=== PATIENT | male | born 1995 ===

== ENCOUNTER 2024-02-11 07:39 | Outpatient (CLI) | payer OTHER ==
--- NOTE | 2024-02-11 13:08 | MRI Report ---
PROCEDURE: Lumbar Spine WO INDICATIONS: LUMBAR RADICULOPATHY TECHNIQUE: Noncontrast sagittal T1 spin echo and T2 fast echo, sagittal STIR, axial T1 and T2 fast spin echo thr ough the lumbar spine. In cases with scoliosis, additional coronal T2 fast spin echo may be performe d. COMPARISON: None. FINDINGS: Image quality: Excellent. Alignment and Curvature: Straightening of the normal lumbar lordosis.. Bone Marrow: Marrow is of normal overall signal. No acute vertebral body compression fractures. Spinal Cord: Conus medullaris terminates at the L1 level. Visualized cord demonstrates normal signa l and size. Paraspinous Soft Tissues: No paravertebral masses. T12-L1: Normal in appearance. L1-L2: Normal in appearance. L2-L3: Normal in appearance. L3-L4: Mild disc desiccation. Diffuse disc bulge. Superimposed left foraminal disc protrusion with associated annular tear. No significant central canal stenosis. Mild left neuroforaminal stenosis. No right neuroforaminal stenosis. L4-L5: Disc desiccation and mild diffuse disc bulge. Superimposed left subarticular disc extrusion extending mildly inferior. This results in narrowing of the left lateral recess and abutment versus i mpingement of the descending left L5 nerve root. No significant central canal or neuroforaminal steno sis. L5-S1: Disc desiccation and mild height loss. Right foraminal disc protrusion resulting in moderate right neuroforaminal stenosis. No central canal stenosis or left neuroforaminal stenosis. IMPRESSION: 1.Degenerative disc disease of the lower lumbar spine as described above. 2.Left subarticular disc extrusion at L4-5 resulting in narrowing of left lateral recess and possible impingement of the descending left L5 nerve root. 3.Right foraminal disc protrusion at L5-S1 resulting in moderate right neuroforaminal stenosis. Reviewed by: Abebe Jacobo MD on 02/11/2024 1:07 PM PDT Approved by: Abebe Jacobo MD on 02/11/2024 1:07 PM PDT Station ID: [id number]
== END 2024-02-11 07:40 | disposition home or self-care (01) ==
LOC: DI 07:39
PROVIDERS: ATTEND Student in an Organized Health Care Education/Training Program
DX: M51.16 Intervertebral disc disorders with radiculopathy, lumbar region (principal); M48.061 Spinal stenosis, lumbar region without neurogenic claudication; M51.27 Other intervertebral disc displacement, lumbosacral region

== ENCOUNTER 2024-06-11 14:24 | Emergency (ER) | payer OTHER ==
[2024-06-11 14:42] VITALS: BP 136/76; O2SAT 99
--- NOTE | 2024-06-11 14:53 | ED Physician Documentation ---
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 He also has a cough. No production to the cough. Minimal sore throat. No COVID testing prior to arrival. PD PAST MEDICAL HISTORY - Past Medical History Past Medical History: No - Past Surgical History Past Surgical History: No - Present Medications Home Medications: Ambulatory Orders Medication Instructions Recorded Confirmed predniSONE [Deltasone] 60 mg PO DAILY 5 Days #15 tablet 06/11/24 - Allergies Allergies/Adverse Reactions: Allergies Allergy/AdvReac Type Severity Reaction Status Date / Time No Known Drug Allergies Allergy Verified 06/11/24 14:37 - Social History Does the pt smoke?: No Smoking Status: Never smoker - Immunizations Immunizations are current?: Yes PD ED PE NORMAL - Vitals Vital signs reviewed: Yes - General General: Alert and oriented X 3, No acute distress - HEENT HEENT: PERRL, EOMI, Other (Mildly red tonsillar pillars without exudates, no cervical adenopathy. Supple neck.) - Neuro Neuro: Alert and oriented X 3 Results - Vitals Vitals: Vital Signs - 24 hr 06/11/24 14:34 Temperature 38.2 C H Heart Rate 101 H Respiratory 16 Rate Blood Pressure 136/76 H O2 Saturation 99 - Labs Labs: Laboratory Tests 06/11/24 14:40 Group A Strep Rapid Negative PD Medical Decision Making - ED course ED course: 29-year-old gentleman presents with what is likely a viral pharyngitis possibly COVID. Discharged with [employer] respiratory panel pending with work note and he needed something for the throat and he is given steroids. He was notified after discharge by phone at 3:36 PM of COVID positivity and need for quarantine. Departure - Departure Disposition: 01 Home, Self Care Clinical Impression: Viral syndrome Condition: Good Record reviewed to determine appropriate education?: Yes Instructions: ED Viral Syndrome Prescriptions: predniSONE [Deltasone] 60 mg PO DAILY 5 Days #15 tablet Comments: You were seen today for nonspecific flulike illness. COVID is going around again and given your symptomatology I would not be surprised if you are positive for that. We will call you if the strep or COVID test are positive. If neither are positive it would likely be some other virus. Tylenol and/or ibuprofen as needed for aches and pains and the steroids will be helpful as well. Return for new or worsening symptoms. You should home quarantine until better and fever free for over 24 hours but still wear a mask for a week after that. Forms: PCP List, Activity restrictions Discharge Date/Time: 06/11/24 15:08
[2024-06-11 14:55] LABS: RAPID STREP SCREEN Negative (Negative)
[2024-06-11] MEDS: predniSONE 20 MG TABLET PO STA (15:04)
[2024-06-11 15:35] LABS: B. PARAPERTUSSIS- RESP PCR PAN NOT DETECTED; B. PERTUSSIS- RESP PCR PANEL NOT DETECTED; C. PNEUMONIAE- RESP PCR PANEL NOT DETECTED; CORONAVIRUS 229E-RESP PCR NOT DETECTED; CORONAVIRUS HKU1-RESP PCR NOT DETECTED; CORONAVIRUS NL63-RESP PCR NOT DETECTED; CORONAVIRUS OC43-RESP PCR NOT DETECTED; HUMAN METAPNEUMOVIRUS NOT DETECTED; INFLUENZA A- RESP PCR PANEL NOT DETECTED; INFLUENZA B - RESP PCR PANEL NOT DETECTED; M. PNEUMONIAE- RESP PCR PANEL NOT DETECTED; PARAINFLUENZA VIRUS 1 NOT DETECTED; PARAINFLUENZA VIRUS 2 NOT DETECTED; PARAINFLUENZA VIRUS 3 NOT DETECTED; PARAINFLUENZA VIRUS 4 NOT DETECTED; RHINOVIRUS/ENTEROVIRUS NOT DETECTED; RSV- RESP PCR PANEL NOT DETECTED
[2024-06-11 15:38] LABS: SARS-CoV-2 -RESP PCR PANEL DETECTED
== END 2024-06-11 15:08 | disposition home or self-care (01) ==
LOC: ED 14:24
DX: B34.9 Viral infection, unspecified (principal)
CPT/HCPCS: 87070; 87430; 87633; 99283; J7512